=== PATIENT | male | born 1985 | race Caucasian/White ===

== ENCOUNTER → 2016-09-06 | Outpatient (CLI) | payer OTHER | LOC: ULTRA 09:04 | DX: R16.1 Splenomegaly, not elsewhere classified (principal); K83.1 Obstruction of bile duct; R10.9 Unspecified abdominal pain; Z90.411 Acquired partial absence of pancreas ==

== ENCOUNTER → 2017-02-02 | Outpatient (CLI) | payer OTHER | LOC: ULTRA 08:53 | DX: K59.00 Constipation, unspecified (principal); R10.11 Right upper quadrant pain ==